=== PATIENT | female | born 1960 | race Caucasian/White ===

== ENCOUNTER 2017-08-28 16:34 | Observation (INO) | payer MEDICAID ==
[~2017-08-28] VITALS: Ht 162.6 cm; Wt 80.5 kg
--- NOTE | ~2017-08-28 | EC ---
PATIENT:KATHY BELTRAN DATE OF SERVICE: 08/28/17 SEX: F MEDICAL RECORD: [id number] DATE OF : 62 LOCATION:D.M2 D.211 AGE OF PATIENT: 57 ADMISSION DATE: 08/28/17 REFERRING PHYSICIAN: INTERPRETING PHYSICIAN: GIO ACUNA MD ECHOCARDIOGRAM REPORT ECHO CHARGES 4 ECHO COMPLETE Date: 08/29 CLINICAL DIAGNOSIS: CHEST PAIN HX CAD/HTN/TIA'S AND AIFB ECHOCARDIOGRAPHIC MEASUREMENTS (adult normal given) AC root (d.<3.7cm) 3.7 cm LV Septum d (<1.2 cm> 1.6 cm Valve Excursion 1.7 cm LV Septum (systole) 1.8 cm Left Atria (s.<4.0cm> 3.6 cm LVPW d(<1.2cm) 1.5 cm RV (d.<2.3cm) 3.1 cm LVPW (sytole) 1.8 cm LV diastole(<5.6CM) 4.7 cm MV E-F(>70mm/sec) cm LV systole 3.8 cm LVOT Diameter 1.6 cm MV exc.(>10mm) 1. cm Est.ejection fraction (50-75%) % DOPPLER: LVIT cm/sec A 74.0 cm/sec E 55.0 cm/sec LA cm/sec RVSP 16 mmHg LVOT 99 cm/sec AOP1/2T m/s Asc. Ao 131 cm/sec RVOT 57 cm/sec RA cm/sec PA 103 cm/sec AV Gradient Peak 6.86 mmHg AV Mean 3.63 mmHg AV Area 1.7 cm MV Gradient Peak 2.87 mmHg MV Mean 1.16 mmHg MV Area cm COMMENTS: Animal Care Supervisor: 2 JOSE STEVE Church Business Administrator: 4 Dr. Acuna TAPE# PACS Pericardial Effusion N DATE OF SERVICE: FINDINGS: 1. The patient underwent a transthoracic echocardiogram showing the left ventricle with left ventricular hypertrophy. Inflow characteristics consistent with diastolic dysfunction. Ejection fraction of 60% to 65%. Left atrium is normal. 2. The aortic valve is normal. 3. The mitral valve is normal. 4. Tricuspid valve is normal. ECHOCARDIOGRAM REPORT [id number] KATHY BELTRAN 5. Pericardium is normal. 6. The right ventricle and the right atrium are mildly enlarged with normal structure and function. CONCLUSIONS: The patient has evidence of hypertensive heart disease. There is otherwise no evidence of regional wall motion abnormalities, masses, clots, or exudates. TRANSINT:[id number] Voice Confirmation ID: [id number] DOCUMENT ID: [id number] GIO ACUNA MD at 1120 CC: [id number] DICTATION DATE: 08/29/17 1541 AUTOMATIC NAILING MACHINE OPERATOR: 08/29/17 1557 DIS IN 08/29/17 [place] [id number] [place] [id number]
--- NOTE | ~2017-08-28 | ST ---
PATIENT:KATHY BELTRAN MEDICAL RECORD: [id number] SEX: F LOCATION:[facility] D.211 ORDER #: ADMISSION DATE: 08/28/17 AGE OF PATIENT: 57 REFERRING PHYSICIAN: INTERPRETING PHYSICIAN: GIO ACUNA MD DATE OF SERVICE: 08/29/2017 PROCEDURE: Lexiscan directed nuclear stress test. PROCEDURE IN DETAIL: The patient was brought to the nuclear stress lab, placed in supine position on the stress table. The patient had sestamibi injected after Lexiscan administered dose, both at rest and at stress, the sestamibi was 11.7 mCi at rest and 32.1 mCi at stress. They were done on the same day. The patient tolerated the stress, however, there was significant ST segment depression in V2-V6 that were accentuated during the Lexiscan stress test. The patient did not have distinct chest pain, but she has felt very uncomfortable, but she was able to complete the protocol. We were able to evaluate the gated imaging and the SPECT imaging for the following results: 1. The patient did not demonstrate any significant areas of photopenia consistent with infarction or ischemia. 2. The Gated imaging showed ejection fraction 61% without any evidence of regional wall motion abnormalities. CONCLUSION: The stress test coupled with her chemistries and her clinical presentation put her at low prognostic risk for CV event over the next 3 months and it would be reasonable to treat her medically with aggressive secondary risk factor modification, antihypertensive control. However, if she were to continue to have symptoms despite maximum medical therapy, angiography may play a role in further risk stratification. TRANSINT:[id number] Voice Confirmation ID: [id number] DOCUMENT ID: [id number] GIO ACUNA MD at 1120 CC: [id number] DICTATION DATE: 08/29/17 1539 FOUNDRY OPERATOR: 08/29/17 1747 DIS IN 08/29/17 [place] [id number] [place] [id number]
[~2017-08-28 16:34] MED LIST: ATIVAN0.5 MG PO; BAYER CHEWABLE81 MG PO; COREG 3.1253.125 MG PO; HYDROCHLOROTH12.5 M1 PO; HYDROCODONE-APA1 TAB PO; PROZAC20 MG PO; SYNTHROID25 MCG PO
[2017-08-28 17:03] LABS: BASOPHILS 0.2 % (0-2); EOSINOPHILS 0.8 % (0-7); HEMATOCRIT 38.7 % (36.0-48.0); HEMOGLOBIN 12.7 g/dL (12-16); IMMATURE GRANULOCYTES 0.2 % (0-5); LYMPHOCYTES 35.4 % (15-50); MCH 29.7 pg (26.0-34.0); MCHC 32.8 g/dL (31.0-37.0); MCV 90.6 fL (80.0-100.0); MEAN PLATELET VOLUME 10.2 fL (7.4-10.4); MONOCYTES 5.3 % (2-11); NEUTROPHILS 58.1 % (40-80); PLATELET COUNT 215 10x3/uL (130-400); RBC 4.27 10x6/uL (4.00-5.40); RDW 12.3 % (11.5-14.5)
[2017-08-28 17:23] LABS: ALKALINE PHOSPHATASE 64 U/L (46-116); ALT (SGPT) 21 U/L (10-68); BILIRUBIN - TOTAL 0.38 mg/dL (0.2-1.3); CALC OSMOLALITY 276 mosm/kg (275-300); CALCIUM 9.4 mg/dL (8.5-10.1); CARBON DIOXIDE 27.2 mmol/L (21.0-32.0); CHLORIDE - SERUM 102 mmol/L (98-107); CREATININE - SERUM 0.9 mg/dL (0.6-1.3); GLUCOSE 95 mg/dL (74-106); POTASSIUM - SERUM 3.4 mmol/L (3.5-5.1); PROTEIN - SERUM 7.5 g/dL (6.4-8.2); SODIUM 138 mmol/L (136-145); UREA NITROGEN 16 mg/dL (7-18); eGFR NON AFRICAN AMERICAN 69 mL/min (90-120)
[2017-08-28 17:28] LABS: CREATINE KINASE 55 UL (21-215)
[2017-08-28 17:31] LABS: TROPONIN-I < 0.017 ng/mL (0.000-0.060)
[2017-08-28 19:37] VITALS: BP 141/71
[2017-08-28 21:08] VITALS: BP 112/65
[2017-08-28 22:45] VITALS: Ht 162.6 cm; Wt 80.5 kg
[2017-08-29 01:39] VITALS: BP 118/73
[2017-08-29 02:02] LABS: BASOPHILS 0.4 % (0-2); EOSINOPHILS 2.1 % (0-7); HEMATOCRIT 36.5 % (36.0-48.0); HEMOGLOBIN 11.8 g/dL (12-16); IMMATURE GRANULOCYTES 0.2 % (0-5); LYMPHOCYTES 40.3 % (15-50); MCH 29.6 pg (26.0-34.0); MCHC 32.3 g/dL (31.0-37.0); MCV 91.5 fL (80.0-100.0); MEAN PLATELET VOLUME 10.2 fL (7.4-10.4); MONOCYTES 6.9 % (2-11); NEUTROPHILS 50.1 % (40-80); PLATELET COUNT 182 10x3/uL (130-400); RBC 3.99 10x6/uL (4.00-5.40); RDW 12.3 % (11.5-14.5); WBC 5.3 10x3/uL (4.8-10.8)
[2017-08-29 02:13] LABS: CALC OSMOLALITY 285 mosm/kg (275-300); CALCIUM 8.9 mg/dL (8.5-10.1); CARBON DIOXIDE 31.3 mmol/L (21.0-32.0); CHLORIDE - SERUM 107 mmol/L (98-107); CREATININE - SERUM 0.8 mg/dL (0.6-1.3); GLUCOSE 90 mg/dL (74-106); POTASSIUM - SERUM 3.9 mmol/L (3.5-5.1); SODIUM 143 mmol/L (136-145); TROPONIN-I < 0.017 ng/mL (0.000-0.060); UREA NITROGEN 15 mg/dL (7-18); eGFR NON AFRICAN AMERICAN 78 mL/min (90-120)
[2017-08-29 06:14] VITALS: BP 114/68
[2017-08-29 08:38] VITALS: BP 110/63
[2017-08-29 12:30] VITALS: BP 118/74
== END 2017-08-29 18:08 | disposition home or self-care (01) ==
LOC: D.ER 16:34 → OBSVTIME 18:16 → D.EDHOLD 18:16 → D.M2 18:16
PROVIDERS: Family Medicine
DX: R07.89 Other chest pain (principal); I48.91 Unspecified atrial fibrillation; Z86.73 Personal history of transient ischemic attack (TIA), and cerebral infarction without residual deficits; I10 Essential (primary) hypertension; F32.9 Major depressive disorder, single episode, unspecified; F41.9 Anxiety disorder, unspecified; E03.9 Hypothyroidism, unspecified; I25.10 Atherosclerotic heart disease of native coronary artery without angina pectoris; E87.6 Hypokalemia

== ENCOUNTER 2018-01-04 22:58 | Emergency (ER) | payer MEDICAID ==
[~2018-01-04] VITALS: Ht 162.6 cm; Wt 76.4 kg
[2018-01-04 23:16] VITALS: Ht 162.6 cm; Wt 76.4 kg
[2018-01-04 23:38] LABS: APPEARANCE HAZY (CLEAR); BILIRUBIN NEGATIVE (NEGATIVE); COLOR YELLOW (YELLOW); GLUCOSE NEGATIVE (NEGATIVE); KETONE NEGATIVE (NEGATIVE); NITRITE NEGATIVE (NEGATIVE); PROTEIN NEGATIVE (NEGATIVE); UROBILINOGEN NORMAL (NORMAL)
[2018-01-04 23:40] LABS: BASOPHILS 0.2 % (0-2); EOSINOPHILS 1.2 % (0-7); HEMATOCRIT 34.8 % (36.0-48.0); HEMOGLOBIN 11.6 g/dL (12-16); IMMATURE GRANULOCYTES 0.2 % (0-5); LYMPHOCYTES 31.6 % (15-50); MCH 30.1 pg (26.0-34.0); MCHC 33.3 g/dL (31.0-37.0); MCV 90.2 fL (80.0-100.0); MEAN PLATELET VOLUME 9.6 fL (7.4-10.4); MONOCYTES 8.4 % (2-11); NEUTROPHILS 58.4 % (40-80); PLATELET COUNT 184 10x3/uL (130-400); RBC 3.86 10x6/uL (4.00-5.40); WBC 6.5 10x3/uL (4.8-10.8)
[2018-01-04 23:45] LABS: BACTERIA MODERATE /hpf (NONE SEEN); EPITHELIAL CELLS OCC /hpf (0-5); RED CELLS - URINE 0-5 /hpf (0-5)
[2018-01-04 23:51] LABS: ALBUMIN 3.7 g/dL (3.4-5.0); ANION GAP 11.4 mmol/L (8-16); BILIRUBIN - TOTAL 0.15 mg/dL (0.2-1.3); CALCIUM 9.1 mg/dL (8.5-10.1); CARBON DIOXIDE 30.2 mmol/L (21.0-32.0); CREATININE - SERUM 0.9 mg/dL (0.6-1.3); POTASSIUM - SERUM 3.6 mmol/L (3.5-5.1); PROTEIN - SERUM 6.8 g/dL (6.4-8.2)
[2018-01-05] MEDS ORDERED: MACROBID100 MG PO (00:51)
[2018-01-05 04:05] VITALS: BP 136/79
== END 2018-01-05 04:05 | disposition home or self-care (01) ==
LOC: D.ER 22:58
PROVIDERS: Emergency Medicine
DX: N30.90 Cystitis, unspecified without hematuria (principal); K62.3 Rectal prolapse; R19.7 Diarrhea, unspecified; R33.9 Retention of urine, unspecified; Z86.73 Personal history of transient ischemic attack (TIA), and cerebral infarction without residual deficits; E07.9 Disorder of thyroid, unspecified; I10 Essential (primary) hypertension; I48.91 Unspecified atrial fibrillation; J44.9 Chronic obstructive pulmonary disease, unspecified

== ENCOUNTER 2018-07-03 17:58 | Emergency (ER) | payer MEDICAID ==
[~2018-07-03] VITALS: Ht 162.6 cm; Wt 78.5 kg
[~2018-07-03 17:58] MED LIST changes: +MACROBID100 MG PO
[2018-07-03 18:02] VITALS: Ht 162.6 cm; Wt 78.5 kg
[2018-07-03] MEDS ORDERED: KLONOPIN1 MG PO (18:08)
[2018-07-03] MEDS ORDERED: HYDROCODON-ACE1 EA10 PO (18:08)
[2018-07-03] MEDS ORDERED: FIORICET/ESGIC1 TAB PO (18:10)
[2018-07-03] MEDS ORDERED: TALWIN NX1 TAB PO (20:54)
[2018-07-03] MEDS ORDERED: VOLTAREN75 MG PO (20:54)
[2018-07-03 21:07] VITALS: BP 120/83
== END 2018-07-03 21:07 | disposition home or self-care (01) ==
LOC: D.ER 17:58
DX: R51 Headache (principal)

== ENCOUNTER 2018-11-29 19:51 | Emergency (ER) | payer MEDICAID ==
[~2018-11-29] VITALS: Ht 162.6 cm; Wt 80.5 kg
[~2018-11-29 19:51] MED LIST changes: +FIORICET/ESGIC1 TAB PO; +HYDROCODON-ACE1 EA10 PO; +KLONOPIN1 MG PO; +TALWIN NX1 TAB PO; +VOLTAREN75 MG PO
[2018-11-29 19:55] VITALS: Ht 162.6 cm; Wt 80.5 kg
[2018-11-29] MEDS ORDERED: NAPROSYN500 MG PO (20:38)
[2018-11-29] MEDS ORDERED: ELAVIL10 MG PO (20:38)
[2018-11-29 21:00] VITALS: BP 118/70
== END 2018-11-29 21:00 | disposition home or self-care (01) ==
LOC: D.ER 19:51
DX: M26.601 Right temporomandibular joint disorder, unspecified (principal); E11.9 Type 2 diabetes mellitus without complications; I10 Essential (primary) hypertension

== ENCOUNTER → 2019-01-29 12:07 | Outpatient (CLI) | payer MEDICAID ==
[2018-11-29 19:55] VITALS: BMI 30.4
[~2019-01-29 12:07] MED LIST changes: +ELAVIL10 MG PO; +NAPROSYN500 MG PO
== END | disposition home or self-care (01) ==
LOC: D.US 11:00
PROVIDERS: ATTEND Family Medicine
DX: E04.1 Nontoxic single thyroid nodule (principal)

== ENCOUNTER 2019-10-08 11:20 | Emergency (ER) | payer OTHER ==
[2019-10-08 11:25] VITALS: Ht 162.6 cm
[2019-10-08 11:41] LABS: BASOPHILS 0.4 % (0-2); EOSINOPHILS 1.4 % (0-7); HEMATOCRIT 38.3 % (36.0-48.0); HEMOGLOBIN 12.4 g/dL (12-16); IMMATURE GRANULOCYTES 0.2 % (0-5); MCH 30.4 pg (26.0-34.0); MCHC 32.4 g/dL (31.0-37.0); MCV 93.9 fL (80.0-100.0); MEAN PLATELET VOLUME 9.4 fL (7.4-10.4); MONOCYTES 6.4 % (2-11); NEUTROPHILS 54.6 % (40-80); PLATELET COUNT 210 10x3/uL (130-400); RBC 4.08 10x6/uL (4.00-5.40); RDW 12.3 % (11.5-14.5); WBC 5.6 10x3/uL (4.8-10.8)
[2019-10-08 11:54] LABS: ANION GAP 11.6 mmol/L (8-16); CALCIUM 8.6 mg/dL (8.5-10.1); CARBON DIOXIDE 26.7 mmol/L (21.0-32.0); POTASSIUM - SERUM 3.3 mmol/L (3.5-5.1)
[2019-10-08 12:02] LABS: ACETAMINOPHEN 7.7 ug/mL (10.0-30.0); ALBUMIN 3.8 g/dL (3.4-5.0); BILIRUBIN - TOTAL 0.32 mg/dL (0.2-1.3); PROTEIN - SERUM 6.5 g/dL (6.4-8.2)
[2019-10-08 12:27] LABS: UDS - AMPHET NEGATIVE QUAL (NEGATIVE); UDS - BARB NEGATIVE QUAL (NEGATIVE); UDS - BENZO POSITIVE QUAL (NEGATIVE); UDS - COCAINE NEGATIVE QUAL (NEGATIVE); UDS - OPIATE POSITIVE QUAL (NEGATIVE); UDS - PCP NEGATIVE QUAL (NEGATIVE); UDS - THC NEGATIVE QUAL (NEGATIVE)
[2019-10-08 12:29] LABS: BACTERIA FEW /hpf (NEGATIVE); BILIRUBIN NEGATIVE (NEGATIVE); EPITHELIAL CELLS OCC /hpf (0-5); GLUCOSE NEGATIVE (NEGATIVE); KETONE NEGATIVE (NEGATIVE); NITRITE NEGATIVE (NEGATIVE); RED CELLS - URINE RARE /hpf (0-5); SPECIFIC GRAVITY 1.025 (1.005-1.020); UROBILINOGEN NORMAL (NORMAL); WHITE CELLS - URINE OCC /hpf (NEGATIVE)
--- NOTE | 2019-10-08 12:41 | NUR ---
According to the suicide assessment the patient scores low for suicide, she denies suicidal ideations, she is severely depressed and wishes she would just not wake up from sleeping. At this time she does not require a 1:1 observation. Will provide her a suicide resource flyer.
[2019-10-08 14:00] VITALS: BP 133/66
== END 2019-10-08 20:00 ==
LOC: D.ER 11:20
PROVIDERS: Family Medicine
DX: R45.850 Homicidal ideations (principal); F32.9 Major depressive disorder, single episode, unspecified; Z86.73 Personal history of transient ischemic attack (TIA), and cerebral infarction without residual deficits; E11.9 Type 2 diabetes mellitus without complications; I10 Essential (primary) hypertension